=== PATIENT | female | born 2000 | race Caucasian/White ===

== ENCOUNTER 2019-02-03 10:14 | Emergency (ER) | payer MEDICAID ==
[~2019-02-03] VITALS: Ht 149.9 cm; Wt 56.0 kg
[2019-02-03 10:18] VITALS: RESP 18; Ht 149.9 cm; Wt 56.0 kg
--- NOTE | 2019-02-03 11:19 | ERD ---
ER Documentation Chief Complaint Chief Complaint pt bib self with c/o vag bleeding approx 2 months preg HPI Patient is a 18 years old female with no known past medical history presenting to the clinic for painless vaginal bleeding since yesterday. Patient reports she was diagnosed with at another clinic which she cannot recall, however patient admits to last menstrual cycle on November 20, 2018. Patient describes her bleeding as small coagulation similar to her normal menstrual cycle. Patient states that she does not have a primary care provider or an CLINICAL ASSOCIATE specialist. ROS All systems reviewed and are negative except as per history of present illness. Allergies Allergies: Coded Allergies: No Known Allergy (Unverified , 02/03/19) PMhx/Soc Patient denies past medical history and family history. Medical and Surgical Hx: pt denies Medical Hx, pt denies Surgical Hx History of Surgery: No Anesthesia Reaction: No Hx Neurological Disorder: No Hx Respiratory Disorders: No Hx Cardiac Disorders: No Hx Psychiatric Problems: No Hx Miscellaneous Medical Probl: No Hx Alcohol Use: No Hx Substance Use: No Hx Tobacco Use: No FmHx Family History: No diabetes, No coronary disease, No other Physical Exam Vitals Vital Signs Date Temp Pulse Resp B/P (MAP) Pulse Ox O2 O2 Flow FiO2 Time Delivery Rate 02/03/19 98.5 97 18 134/77 99 10:18 (96) Physical Exam Const: No acute distress Head: Atraumatic Eyes: Normal Conjunctiva Resp: Clear to auscultation bilaterally Cardio: Regular rate and rhythm, no murmurs Abd: Soft, non tender, non distended. Normal bowel sounds Skin: No petechiae or rashes Ext: No cyanosis, or edema Neur: Awake and alert Psych: Normal Mood and Affect Result Diagram: 02/03/19 1116 Results 24 hrs Laboratory Tests Test 02/03/19 11:16 White Blood Count 10.7 10^3/ul Red Blood Count 4.89 10^6/ul Hemoglobin 14.0 g/dl Hematocrit 41.5 % Mean Corpuscular Volume 84.9 fl Mean Corpuscular Hemoglobin 28.6 pg Mean Corpuscular Hemoglobin Concent 33.7 g/dl Red Cell Distribution Width 11.6 % Platelet Count 219 10^3/UL Mean Platelet Volume 10.2 fl Immature Granulocytes % 0.300 % Neutrophils % 79.9 % Lymphocytes % 14.9 % Monocytes % 3.6 % Eosinophils % 0.7 % Basophils % 0.6 % Nucleated Red Blood Cells % 0.0 /100WBC Immature Granulocytes # 0.030 10^3/ul Neutrophils # 8.6 10^3/ul Lymphocytes # 1.6 10^3/ul Monocytes # 0.4 10^3/ul Eosinophils # 0.1 10^3/ul Basophils # 0.1 10^3/ul Nucleated Red Blood Cells # 0.0 10^3/ul Urine Color COLORLESS Urine Clarity CLEAR Urine pH 9.0 Urine Specific [place] 1.003 Urine Ketones NEGATIVE mg/dL Urine Nitrite NEGATIVE mg/dL Urine Bilirubin NEGATIVE mg/dL Urine Urobilinogen NEGATIVE mg/dL Urine Leukocyte Esterase NEGATIVE Corey/ul Urine Microscopic RBC 0 /HPF Urine Microscopic WBC 1 /HPF Urine Hemoglobin 2+ mg/dL Urine Glucose NEGATIVE mg/dL Urine Total Protein NEGATIVE mg/dl Beta HCG, Quantitative 62291.0 mIU/ml Procedures/MDM Labs and ultrasound were reviewed that showed no abnormalities. Patient was advised to f/u in 72 hours for repeat ultrasound and betaHCG. Patient was given CLINICAL ASSOCIATE referral and was informed about importance of following up with specialist. Pelvic exam was withheld as vaginal bleeding was small in quantity. Departure Diagnosis: Primary Impression: Vaginal bleeding in patient at less than 20 weeks gestation Condition: Stable Patient Instructions: Bleeding During Early Referrals: CLINICAL ASSOCIATE REFERRAL LIST MARIAH OCHOA PA-C February 03, 2019 11:19
[2019-02-03 13:22] VITALS: BP 119/63; PULSE 82
== END 2019-02-03 13:24 | disposition home or self-care (01) ==
LOC: FTE 10:14
DX: O20.9 Hemorrhage in early pregnancy, unspecified (principal); Z3A.00 Weeks of gestation of pregnancy not specified
CPT/HCPCS: 36415; 76801; 81001; 84702; 85025; 86900; 86901; Z7502

== ENCOUNTER 2019-02-04 09:55 | Emergency (ER) | payer MEDICAID ==
[~2019-02-04] VITALS: Wt 44.0 kg
[2019-02-04 10:01] VITALS: Wt 44.0 kg
[2019-02-04] MEDS ORDERED: SOD CHLORIDE 0.9% 1,000 ML IV STA (10:27)
--- NOTE | 2019-02-04 10:37 | ERD ---
ER Documentation Chief Complaint Chief Complaint VAG BLEEDING WITH D/C 2 MONTHS PREG HPI Patient is a 18 years old first trimester patient presenting to the clinic for possible passage of conception earlier today. Patient was seen and evaluated yesterday for vaginal bleeding without any complication and was discharged with a follow-up in 72 hours for a repeat ultrasound and beta-hCG, however, patient started experiencing pain for 7 hours in the morning followed by passage of "something" vagina with large chunks of blood. Patient states that she is no longer bleeding and her pain level went down but she is highly concerned. Patient states that she took a picture of what was expelled from her vagina and believes it to be the fetus. Patient reports of a mild headache which was worse during the 7-hour period of pain. Patient denies any fever, chills or night sweats. ROS All systems reviewed and are negative except as per history of present illness. Allergies Allergies: Coded Allergies: No Known Allergy (Unverified , 02/03/19) PMhx/Soc Medical and Surgical Hx: pt denies Medical Hx, pt denies Surgical Hx History of Surgery: No Anesthesia Reaction: No Hx Neurological Disorder: No Hx Respiratory Disorders: No Hx Cardiac Disorders: No Hx Psychiatric Problems: No Hx Miscellaneous Medical Probl: No Hx Alcohol Use: No Hx Substance Use: No Hx Tobacco Use: No Smoking Status: Never smoker FmHx Family History: No diabetes, No coronary disease, No other Physical Exam Vitals Vital Signs Date Temp Pulse Resp B/P (MAP) Pulse Ox O2 O2 Flow FiO2 Time Delivery Rate 02/04/19 99.1 87 18 118/78 99 10:01 (91) Physical Exam Const: No acute distress Head: Atraumatic Eyes: Normal Conjunctiva. Neur: Awake and alert Psych: Normal Mood and Affect Pelvic/Vaginal Exam: Minimal bleeding with remained tissue that was removed successfully without any complication. tissue sent to lab for cytology. OSORIO Joya was the field training agent for vaginal exam. Result Diagram: 02/04/19 1042 Results 24 hrs Laboratory Tests Test 02/04/19 10:42 White Blood Count 6.7 10^3/ul Red Blood Count 4.57 10^6/ul Hemoglobin 13.1 g/dl Hematocrit 39.3 % Mean Corpuscular Volume 86.0 fl Mean Corpuscular Hemoglobin 28.7 pg Mean Corpuscular Hemoglobin Concent 33.3 g/dl Red Cell Distribution Width 11.9 % Platelet Count 196 10^3/UL Mean Platelet Volume 10.0 fl Immature Granulocytes % 0.300 % Neutrophils % 66.6 % Lymphocytes % 25.0 % Monocytes % 5.0 % Eosinophils % 2.0 % Basophils % 1.1 % Nucleated Red Blood Cells % 0.0 /100WBC Immature Granulocytes # 0.020 10^3/ul Neutrophils # 4.4 10^3/ul Lymphocytes # 1.7 10^3/ul Monocytes # 0.3 10^3/ul Eosinophils # 0.1 10^3/ul Basophils # 0.1 10^3/ul Nucleated Red Blood Cells # 0.0 10^3/ul Beta HCG, Quantitative 8658.4 mIU/ml Current Medications Medications Dose Sig/Jase Start Time Status Last (Trade) Ordered Route PRN Stop Time Admin Dose Reason Admin Sodium 1,000 ml @ Q1H STAT 02/04/19 DC 02/04/19 Chloride 1,000 mls/hr IV 10:27 10:45 02/04/19 11:26 Procedures/MDM Patient was evaluated for possible passage of conception. General ultrasound shows no signs of intrauterine and is otherwise normal. Vaginal exam showed retained tissue was extracted without any complication and sent to cytology. Patient was informed most of the tissue has been expelled and is diagnosed with Spontaneous . Patient was advised to contact [facility] TECHNICIAN from list of referral given yesterday for follow up for hormone check. Labs were reviewed and are grossly normal. Beta-hCG has a downward trend since yesterday's visit. Patient was revaluated post pelvic exam and tissue extraction. Patient reports no longer bleeding as much. Departure Diagnosis: Primary Impression: Spontaneous Condition: Stable Additional Instructions: Paciente aconseja volver a Departamento de urgencias inmediatamente para sntomas nuevos o que empeoran . Paciente aconseja posteriores con el PCP en 2-3 gautam . Paciente verbaliza la comprehensin y est de acuerdo con el tratamiento y el curso de accin. Si el paciente no tiene ninguna de atencin primaria pueden seguir con [facility] [id number] [place] [address] o [facility] + [facility] [address] [place] [address] MARIAH OCHOA PA-C February 04, 2019 10:37
[2019-02-04 12:40] VITALS: BP 109/64; PULSE 78; RESP 16
== END 2019-02-04 12:40 | disposition home or self-care (01) ==
LOC: FTE 09:55
DX: O03.9 Complete or unspecified spontaneous abortion without complication (principal); R10.2 Pelvic and perineal pain
CPT/HCPCS: 36415; 76801; 84702; 85025; 88305; J7030; Z7502